=== PATIENT | male | born 1965 | race Two or more races ===

== ENCOUNTER 2023-07-09 14:24 | Emergency (ER) | payer MEDICAID ==
[~2023-07-09] VITALS: Ht 160 cm; Wt 91.0 kg
[2023-07-09 14:39] VITALS: O2SAT 98
[2023-07-09] MEDS ORDERED: AMLO5TAB88 MT (20:38)
[2023-07-09] MEDS ORDERED: BENZ1LOZ73 MT (20:38)
[2023-07-09] MEDS ORDERED: BENZ100C86 MT (20:38)
[2023-07-09 21:04] VITALS: BP 151/76; PULSE 94; RESP 18; TEMP 98.8
== END 2023-07-09 21:05 | disposition home or self-care (01) ==
LOC: ER 14:42
DX: R05.9 Cough, unspecified (principal); E78.00 Pure hypercholesterolemia, unspecified; I10 Essential (primary) hypertension
CPT/HCPCS: 71045; 99283